=== PATIENT | male | born 1990 | race Hispanic/Latino ===

== ENCOUNTER 2022-08-17 13:19 | Emergency (ER) | payer SELFPAY ==
[~2022-08-17] VITALS: Ht 170.2 cm; Wt 79.4 kg
[2022-08-17 13:51] VITALS: BP 144/82
[2022-08-17 14:00] VITALS: BP 133/85
[2022-08-17 14:15] VITALS: BP 125/89
[2022-08-17 14:25] LABS: URINE BILIRUBIN - DIPSTICK NEGATIVE (NEGATIVE); URINE BLOOD DIPSTICK NEGATIVE (NEGATIVE); URINE COLOR YELLOW; URINE GLUCOSE - DIPSTICK NEGATIVE (NEGATIVE); URINE KETONE NEGATIVE (NEGATIVE); URINE LEUK ESTERASE NEGATIVE (NEGATIVE); URINE PROTEIN - DIPSTICK NEGATIVE (NEG-TRACE); URINE UROBILINOGEN - DIPSTICK 0.2 E.U./dL (0.2)
[2022-08-17] MEDS ORDERED: DOXY-CAPS100 MG PO (14:26)
[2022-08-17 14:28] LABS: URINE NITRITE - DIPSTICK NEGATIVE (Negative)
[2022-08-17 14:30] VITALS: BP 137/90
[2022-08-17 14:56] VITALS: BP 137/90
== END 2022-08-17 15:03 | disposition home or self-care (01) | DRG 730 ==
LOC: ED 13:19
PROVIDERS: Family Medicine
DX: N48.89 Other specified disorders of penis (principal); Z20.2 Contact with and (suspected) exposure to infections with a predominantly sexual mode of transmission
CPT/HCPCS: J0561